=== PATIENT | female | born 1970 | race Two or more races ===

== ENCOUNTER 2018-04-03 08:25 | Inpatient (IN) | payer BC ==
[~2018-04-03] VITALS: Ht 167.6 cm; Wt 127.0 kg
[2018-04-03] VITALS (14 sets, daily range): BP systolic 114–173; BP diastolic 51–99
[~2018-04-03 08:25] MED LIST: LISINOPRIL40 MG ORAL; SERTRALINE HCL25 MG ORAL; VITAMIN D400 INTLU ORAL
[2018-04-03] MEDS ORDERED: VITAMIN D35000 UNIT PO (09:11)
[2018-04-03] MEDS ORDERED: Ropivacaine 5mg/ml Vial 30ml INJ ONE (09:23)
[2018-04-03] MEDS ORDERED: Zemuron 50mg/5ml Inj IV ONE ×2 (09:27→10:00)
[2018-04-03] MEDS ORDERED: Midazolam 2mg/2ml Inj ONE (09:44)
[2018-04-03] MEDS ORDERED: fentaNYL 100 mcg/2 mL IV ONE ×4 (09:44→13:48)
[2018-04-03] MEDS ORDERED: Lidocaine 1% MPF 10mg/ml 5ml ONE (10:00)
[2018-04-03] MEDS ORDERED: Sterile Water Irrig 1000ml IRRIG ONE (10:00)
[2018-04-03] MEDS ORDERED: LR 1000ml ONE (10:00)
[2018-04-03] MEDS ORDERED: Dexamethasone 4mg/ml vial ONE (10:00)
[2018-04-03] MEDS ORDERED: NS Irrig 1000ml ONE (10:00)
--- NOTE | 2018-04-03 10:31 | Anethesia Preoperative Eval ---
Anesthesia Pre-op PMH/ROS General Date of Evaluation: Apr 03, 2018 Time of Evaluation: 09:50 Anesthesiologist: ASA Score: ASA 3 Mallampati Score Class I : Soft palate, uvula, fauces, pillars visible Class II: Soft palate, uvula, fauces visible Class III: Soft palate, base of uvula visible Class IV: Only hard plate visible Mallampati Classification: Class III Surgeon: nia Diagnosis: adenomyosis Surgical Procedure: supracervical hysterectomy, bilateral salpingectomy Anesthesia History: none Allergies: Coded Allergies: PENICILLINS (Verified Allergy, Severe, 04/02/18) rash, hives TRAMADOL (Verified Allergy, Severe, 04/02/18) rash Past Medical History Cardiovascular: Reports: HTN; Denies: CAD, HI, valve dz, arrhythmia, other Pulmonary: Denies: asthma, COPD, EILEEN, other Gastrointestinal/Genitourinary: Reports: GERD; Denies: CRI, ESRD, other Neurologic/Psychiatric: Reports: depression/anxiety; Denies: dementia, CVA, TIA, other Endocrine: Denies: DM, hypothyroidism, steroids, other HEENT: Denies: cataract (L), cataract (R), glaucoma, [place] (L), [place] (R), other Hematology/Immune: Reports: anemia; Denies: DVT, bleeding disorder, other Musculoskeletal/Integumentary: Reports: other - multple arthralgias Other: obesity PSxH Narrative: c/section Anesthesia Pre-op Phys. Exam Physician Exam Last Vital Signs Date Time Temp Pulse Resp B/P (MAP) Pulse Ox O2 Delivery O2 Flow Rate FiO2 04/03/18 09:09 97.9 75 18 114/51 (72) 96 97.9 04/03/18 08:59 Room Air Constitutional: NAD Cardiovascular: RRR Respiratory: CTA Gastrointestinal: S/NT/ND Airway Exam Mallampati Score: Class III MO: full ROM: full Teeth: missing Dentures: lower; no upper Anesthesia Pre-op A/P Labs Urine Test Test 04/03/18 08:35 Urine HCG, Qualitative Negative (NEGATIVE) Risk Assessment & Plan Assessment: asa 3 Plan: ETGA Status Change Before Surgery: No Pre-Antibiotics Drug: ancef 2 grams Given Within 1 Hr of Incision: Yes Time Given: 10:30 Valerie Fraser M.D. Apr 03, 2018 10:31
[2018-04-03] MEDS ORDERED: LR 1000ml 1,000 ML IVLG SCH (10:34)
[2018-04-03] MEDS ORDERED: fentaNYL 100 mcg/2 mL IV PRN (10:45)
[2018-04-03] MEDS ORDERED: Labetalol 5mg/ml 20ml vial IV PRN (10:45)
[2018-04-03] MEDS ORDERED: Midazolam 2mg/2ml Inj IVP PRN (10:45)
[2018-04-03] MEDS ORDERED: DiphenhydrAMINE 50mg/ml Inj IVP PRN (10:45)
[2018-04-03] MEDS ORDERED: Propofol 200mg/20ml IV ONE (13:01)
[2018-04-03] MEDS ORDERED: Neostigmine 1mg/ml 10ml Inj ONE (13:02)
[2018-04-03] MEDS ORDERED: Glycopyrrolate 0.2mg/ml 1ml Vial ONE (13:02)
--- NOTE | 2018-04-03 13:08 | Immediate Post-Op Evaluation ---
Immediate Post-Op Evalulation Immediate Post-Op Evalulation Procedure: supracervical hysterectomy, bilateral salpingectomy Date of Evaluation: Apr 03, 2018 Time of Evaluation: 13:30 IV Fluids: LR 2000ml Blood Products: 0 Estimated Blood Loss: 300ml Urinary Output: 100ml Blood Pressure Systolic: 138 Blood Pressure Diastolic: 84 Pulse Rate: 91 Respiratory Rate: 23 O2 Sat by Pulse Oximetry: 96 Temperature (Fahrenheit): 98.7 Pain Score (1-10): 5 Nausea: No Vomiting: No Complications none Patient Status: awake, patent, none Hydration Status: adequate Drug: ancef 2 grams Given Within 1 Hr of Incision: Yes Time Given: 10:30 Valerie Fraser M.D. Apr 03, 2018 13:08
[2018-04-03] MEDS ORDERED: Labetalol 5mg/ml 20ml vial IV ONE (13:18)
[2018-04-03] MEDS ORDERED: D5 1/2NS w/KCl 20mEq 1,000 ML IV SCH (13:20)
[2018-04-03] MEDS ORDERED: Zolpidem 5mg tab ORAL PRN (13:30)
[2018-04-03] MEDS ORDERED: Sennosides 8.6mg ORAL PRN (13:30)
[2018-04-03] MEDS ORDERED: HYDROcodone/Acetamin 10/325 tab ORAL PRN (13:30)
--- NOTE | 2018-04-03 13:38 | Brief Operative Note ---
Immediate Post Operative Note Operative Note Pre-op Diagnosis: Large Uterine Fibroids, Severe Uterine Bleeding, Dysmenorrhea Procedure: Supracervical Hysterectomy, Bilateral Salpingectomy Post-op Diagnosis: same as pre-op plus - Extensive Pelvic Adhesions Surgeon: Jn Weldon MD Adjunct Sociology Professor: Reena Hernandez MD Anesthesia: general Specimen: yes - Uterus, Tubes, Cervical Fragment (Core) Complications: none Condition: stable Fluids: D5 NS @125 cc/hr Estimated Blood Loss: volume - 200 Drains: none Implant(s) used?: No JN WELDON Apr 03, 2018 13:38
--- NOTE | 2018-04-03 13:39 | Pre-Procedure Note/Attestation ---
Pre-Procedure Note/Attestation Complete Prior to Procedure Planned Procedure: not applicable Procedure Narrative: Supracervical Hysterectomy, Bilateral Salpingectomy Indications for Procedure Pre-Operative Diagnosis: Large Uterine Fibroids, Severe Uterine Bleeding, Dysmenorrhea Attestation I attest that I discussed the nature of the procedure; its benefits; risks and complications; and alternatives (and the risks and benefits of such alternatives ), prior to the procedure, with the patient (or the patient's legal uniforms sales representative). I attest that, if there was a reasonable possibility of needing a blood transfusion, the patient (or the patient's legal uniforms sales representative) was given the [facility] standardized written summary, pursuant to the [place] Blood Safety Act ([place] Health and Safety Code # 1645, as amended). I attest that I re-evaluated the patient just prior to the surgery and that there has been no change in the patient's H&P, except as documented below:NONE JN WELDON Apr 03, 2018 13:39
[2018-04-03] MEDS ORDERED: Rate Change PCA 1 Each MISC PRN (14:30)
[2018-04-03] MEDS ORDERED: Morphine Sulfate 2mg/ml Inj IVP PRN (14:30)
[2018-04-03] MEDS ORDERED: Morphine Sulfate 4mg/ml Inj IV PRN (14:30)
[2018-04-03] MEDS: Hydromorphone 0.5mg/0.5ml inj IVP PRN ×2 (14:30→15:16)
[2018-04-03] MEDS ORDERED: Naloxone 0.4mg/ml Inj IVP PRN (14:30)
[2018-04-03] MEDS: PCA Morphine 1mg/ml 30 ML IV PRN (14:39)
[2018-04-03] MEDS ORDERED: PCA Education Pamphlet MISC SCH (17:00)
[2018-04-03] MEDS: D5 1/2NS w/KCl 20mEq 1,000 ML IV SCH (18:01)
[2018-04-03] MEDS: PCA shift volume MISC SCH (19:14)
--- NOTE | 2018-04-03 19:19 | 48 Hour Post Anesthesia Eval ---
Post Anesthesia Evaluation Procedure: supracervical hysterectomy, bilateral salpingectomy Date of Evaluation: Apr 03, 2018 Time of Evaluation: 15:58 Blood Pressure Systolic: 156 0: 92 Pulse Rate: 90 Respiratory Rate: 18 Temperature (Fahrenheit): 98.8 O2 Sat by Pulse Oximetry: 99 Nausea: No Vomiting: No If pain is > 6 Comment: 0 Hydration Status: adequate Mental Status/LOC: patient returned to baseline Post-Anesthesia Complications: none Follow-up care needed: N/A Valerie Fraser M.D. Apr 03, 2018 19:19
[2018-04-04] VITALS (7 sets, daily range): BP systolic 96–137; BP diastolic 57–78
[2018-04-04] MEDS: D5 1/2NS w/KCl 20mEq 1,000 ML IV SCH ×2 (01:47→09:57)
[2018-04-04 06:26] LABS: BASOPHILS % (AUTO) 0.4 % (0.0-2.0); EOSINOPHILS % (AUTO) 0.1 % (0.0-3.0); HEMATOCRIT 35.6 % (37.0-47.0); HEMOGLOBIN 11.4 G/DL (12.0-16.0); LYMPHOCYTES % (AUTO) 14.1 % (20.0-45.0); MEAN CORPUSCULAR VOLUME 80 FL (80-99); MONOCYTES % (AUTO) 8.2 % (1.0-10.0); NEUTROPHILS % (AUTO) 77.2 % (45.0-75.0); PLATELET COUNT 302 K/UL (150-450); RED BLOOD COUNT 4.43 M/UL (4.20-5.40); RED CELL DISTRIBUTION WIDTH 14.9 % (11.6-14.8); WHITE BLOOD COUNT 11.8 K/UL (4.8-10.8)
[2018-04-04 06:34] LABS: ANION GAP 7 mmol/L (5-15); BLOOD UREA NITROGEN 6 mg/dL (7-18); CALCIUM 8.3 MG/DL (8.5-10.1); CARBON DIOXIDE 27 MMOL/L (21-32); CHLORIDE 103 MMOL/L (98-107); CREATININE 0.7 MG/DL (0.55-1.30); PHOSPHORUS 3.1 MG/DL (2.5-4.9); POTASSIUM 3.9 MMOL/L (3.5-5.1); SODIUM 137 MMOL/L (136-145)
[2018-04-04] MEDS: PCA shift volume MISC SCH (07:29)
[2018-04-04] MEDS: Sertraline 50mg tab ORAL SCH (08:38)
[2018-04-04] MEDS: Lisinopril 20mg tab ORAL SCH (08:38)
[2018-04-04] MEDS: PCA Morphine 1mg/ml 30 ML IV PRN (10:04)
[2018-04-04] MEDS ORDERED: Ketorolac 60mg Inj IM SCH (15:45)
[2018-04-04] MEDS ORDERED: HYDROcodone/Acetamin 10/325 tab ORAL PRN (15:45)
--- NOTE | 2018-04-04 15:55 | General Progress Note ---
Progress Note Progress Note POD#1 s/p supracervical hysteroscopy, bilateral salpingectomy Afebrile, good BP control with meds, good pain control on BOTANICAL TECHNICAL OFFICER Incision dry, chetan intact Not indurated Plan: 1. D/c Bah 2. D/C BOTANICAL TECHNICAL OFFICER 1 hr after 1st dose of Toradol 3. Toradol 60 mg IM one time, followed by 30 mg IV q 6 hrs scheduled 4. Clear liquids 5. Ambulate at least q2 hrs 6. May shower JN WELDON Apr 04, 2018 15:55
[2018-04-04] MEDS: Ketorolac 30mg Inj IV SCH ×2 (21:31→22:03)
[2018-04-05] VITALS (7 sets, daily range): BP systolic 87–124; BP diastolic 49–74
[2018-04-05] MEDS: Ketorolac 30mg Inj IV SCH ×4 (05:00→23:39)
[2018-04-05] MEDS: Sertraline 50mg tab ORAL SCH (08:22)
[2018-04-05] MEDS: Lisinopril 20mg tab ORAL SCH (08:23)
--- NOTE | 2018-04-05 14:03 | General Progress Note ---
Progress Note Progress Note POD#2 Afebrile, ambulating well, good pain control with Toradol Incision dry, chetan intact Will consider d/c hcetan tomorrow JN WELDON Apr 05, 2018 14:03
[2018-04-06] VITALS: BP 120/79
[2018-04-06 04:00] VITALS: BP 110/58
[2018-04-06] MEDS: Ketorolac 30mg Inj IV SCH ×3 (04:51→15:45)
[2018-04-06 08:00] VITALS: BP 159/81
[2018-04-06] MEDS: Lisinopril 20mg tab ORAL SCH (08:47)
[2018-04-06] MEDS: Sertraline 50mg tab ORAL SCH (08:47)
[2018-04-06 12:00] VITALS: BP 138/87
[2018-04-06 16:00] VITALS: BP 150/77
[2018-04-06] MEDS ORDERED: IBUPROFEN600 MG ORAL (18:51)
--- NOTE | 2018-04-06 22:30 | Operative Note - Dictated ---
DATE OF OPERATION: 04/06/2018 SURGEON: Guru Peace M.D. PRINTED CIRCUIT BOARDS PLASMA ETCHER: Karlos Hernandez M.D. ANESTHESIA: General endotracheal. ANESTHESIOLOGIST: Dr. Fraser. PREOPERATIVE DIAGNOSES: Severe uterine bleeding, severe dysmenorrhea, uterine fibroids and uterine adenomyosis. POSTOPERATIVE DIAGNOSES: Severe uterine bleeding, severe dysmenorrhea, uterine fibroids and uterine adenomyosis plus multiple pelvic and abdominal adhesions and bowel adhesions. PROCEDURE PERFORMED: Supracervical hysterectomy, bilateral salpingectomy, extensive lysis of adhesions and enterolysis. PROCEDURE IN DETAIL: After all the appropriate consents were signed, the patient was brought to the operating room, placed on table in supine position. General endotracheal anesthesia was induced without complication. The patient was then prepped and draped in the usual fashion for the procedure. A skin incision was made, was carried through the thick layer of subcutaneous tissue. The fascia was identified and a fascial incision was made and then extended bilaterally to expose the rectus muscle. The fascia was then reflected both inferiorly and posteriorly to expose the rectus muscle. The rectus muscle was parted in the midline to expose the peritoneum. The peritoneum was entered sharply. The procedure then continued with identifying the uterus. There were multiple adhesions to the uterus and to the abdominal wall. Most of the adhesions were to the right of the uterus and above the pelvis. There were multiple adhesions from the bowel to the uterine fundus. At this time, bowel adhesions were gradually dissected and once the enterolysis was completed, the bowel was examined and was found to be within normal limits and undamaged. The omental adhesions were also parted using coagulation and suture ligation of the omentum. Once this procedure was completed, Anton retractor was placed in the pelvis to expose the uterus. The patient was again then examined. Both tubes and ovaries were identified with the right tube and ovary severely stuck to the uterus and to the additional adhesions and bowel adhesions and now the uterus was exteriorized and the round ligaments were identified bilaterally. The right round was then clamped, cut, and suture ligated to expose the broad ligament. The broad ligament was then transected to develop the bladder flap. The same was repeated on the left side and the bladder flap was developed; however, the bladder flap itself could contain multiple layers due to previous surgical adhesions and bladder closure. At this time, the ovary on the right side along with the tube had to be dissected away from the bowel adhesions and the omental adhesions. Once this was completed, the tube on the right side was clamped, cut, and suture ligated. The ovary was left intact. At this time, the utero-ovarian ligament was clamped after the broad ligament was entered. was clamped, cut and suture ligated. The procedure then continued with identifying the uterine vessels and were clamped, cut, and suture ligated. The same procedure was performed on the left side where the access to the broad ligament and the utero-ovarian ligament was much easier and on the left side, the uterine vessels were also clamped, cut, and suture ligated. At this time, the bladder flap was extended further to expose the cervix. The uterus was now removed using blade and Cohen scissors. The uterus itself was removed from the field and submitted to pathology for evaluation. The cervix was now examined and cervical core was taken out to remove any possible area of the endometrium. The uterine stump was suture ligated to assure complete hemostasis. At this time, both ovaries and the cervical stump was removed. At this time, the the pelvis was irrigated and debris and blood were suctioned multiple times. Complete hemostasis was noted in all the operative sites. The retractors and the laps were removed. All of the count was correct and the pelvis was closed by closing the peritoneum first using 2-0 Vicryl suture followed by approximating the rectus muscle at the midline. The fascia was closed using 0 Vicryl suture bilaterally. Subcutaneous tissue was closed using plain suture and the skin was closed with stainless steel chetan. The patient was then awakened from general anesthesia after dressing was placed. She was taken to the recovery room in excellent condition. Guru Peace M.D. DR: KELVIN JOB#: [id number] CC:
--- NOTE | 2018-04-07 09:25 | Discharge Summary ---
Discharge Summary Hospital Course Date of Admission Apr 03, 2018 at 08:25 Date of Discharge Apr 06, 2018 at 19:08 Admitting Diagnosis Severe uterine bleeding, Severe dysmenorrhea, Uterine fibroids, Uterine adenomyosis. Reason for Hospitalization: Elective surgery HPI Debbie Nicholas is a 47 year old female who was admitted on Apr 03, 2018 at 08: 25 for severe uterine bleeding, severe dysmenorrhea, uterine fibroids, uterine adenomyosis. Patient was admitted for elective surgery. Procedures s/p 04/06/[address] Huizar Supracervical hysterectomy, bilateral salpingectomy, extensive lysis of adhesions and enterolysis. Hospital Course s/p surgery course of recovery uneventful initially NPO, IV fluids pain management with [employer] ASSISTANT MANAGER Bah catheter with good output on first postop day Bah catheter and [employer] ASSISTANT MANAGER discontinued pain management further addressed and controlled incision dry, chetan intact, no induration blood pressure management with EDGAR inhibitor, stable started clear liquid diet and advanced as tolerated, antiemetics prn voided freely tolerated diet out of bed as tolerated every 2 hours, ambulated, incentive spirometry while in the bed bowel regimen instituted chetan removed 04/06 and Steri-Strip applied surgeon cleared for shower discharge instructions provided outpatient follow-up with surgeon as advised FINAL DIAGNOSES Severe uterine bleeding, Severe dysmenorrhea, Uterine fibroids Uterine adenomyosis. s/p supracervical hysterectomy, bilateral salpingectomy, extensive lysis of adhesions and enterolysis Hypertension Discharge Medications Continued Medications: Cholecalciferol (Vitamin D3) (Vitamin D3) 5,000 Unit Capsule 5000 UNIT PO DAILY, CAP (This prescription has been renewed) Ibuprofen* (Motrin*) 600 Mg Tablet 600 MG ORAL Q6H PRN for For Pain, #30 TAB (This prescription has been renewed) Lisinopril* (Lisinopril*) 40 Mg Tablet 40 MG ORAL DAILY, TAB (This prescription has been renewed) Sertraline Hcl* (Sertraline Hcl*) 25 Mg Tablet 25 MG ORAL DAILY, TAB (This prescription has been renewed) Discharge Discharge Disposition Patient was discharged to Home (01) Discharge Instructions Discharge Instructions Special Instructions I have been assigned to complete a D/C Summary on this account. I was not involved in the patient management Nicolle Silva DIRECTOR NURSES' REGISTRY Apr 07, 2018 09:25
== END 2018-04-06 19:08 | disposition home or self-care (01) | DRG 743 ==
LOC: SDSOVERFLO 08:25 → 3E 16:25
PROC: 0UN50ZZ Release Right Fallopian Tube, Open Approach (ICD-10-PCS; principal; 2018-04-06)
PROC: 0UN00ZZ Release Right Ovary, Open Approach (ICD-10-PCS; principal; 2018-04-06)
PROC: 0DNW0ZZ Release Peritoneum, Open Approach (ICD-10-PCS; principal; 2018-04-06)
PROC: 0UT70ZZ Resection of Bilateral Fallopian Tubes, Open Approach (ICD-10-PCS; principal; 2018-04-06)
PROC: 0UT90ZL Resection of Uterus, Supracervical, Open Approach (ICD-10-PCS; principal; 2018-04-06)
DX: D25.9 Leiomyoma of uterus, unspecified (principal); N80.0 Endometriosis of uterus; N94.6 Dysmenorrhea, unspecified; N93.8 Other specified abnormal uterine and vaginal bleeding; N73.6 Female pelvic peritoneal adhesions (postinfective); I10 Essential (primary) hypertension; K66.0 Peritoneal adhesions (postprocedural) (postinfection); Z88.6 Allergy status to analgesic agent; Z88.0 Allergy status to penicillin; K21.9 Gastro-esophageal reflux disease without esophagitis
CPT/HCPCS: 36415; 80048; 81025; 82330; 83735; 84100; 85025; 86850; 86900; 86901; 87081; J2250; J2710